=== PATIENT | male | born 1940 | race Caucasian/White ===

== ENCOUNTER 2017-06-04 06:20 | Emergency (ER) | payer MEDICARE, OTHER ==
[~2017-06-04] VITALS: Ht 185.4 cm; Wt 127.3 kg
[~2017-06-04 06:20] MED LIST: ACET-1015 PO; ALLO100T PO; ASPI-1264 PO; ATOR40TA PO; CHOL10008 PO; FURO40TA4 PO; GLYB-97 PO; LOSA50TA3 PO; METF1000 PO; POTA8TAB3 PO; SOTA80TA69 PO; SYN0.112T PO; TRAM50TA2 PO
[2017-06-04] MEDS ORDERED: HYDROcodone/acetaminophen 5mg/325mg tablet PO ONE ×2 (06:25→07:40)
[2017-06-04] MEDS ORDERED: naproxen 500mg tablet PO ONE ×2 (06:25→07:40)
[2017-06-04] MEDS ORDERED: HYDR-569 PO (07:42)
[2017-06-04] MEDS ORDERED: NAPR-56 PO (07:42)
== END 2017-06-04 08:19 | disposition home or self-care (01) ==
LOC: ER 06:20
DX: M47.896 Other spondylosis, lumbar region (principal); I25.2 Old myocardial infarction; M10.9 Gout, unspecified; J44.9 Chronic obstructive pulmonary disease, unspecified; E11.9 Type 2 diabetes mellitus without complications; I10 Essential (primary) hypertension; I25.10 Atherosclerotic heart disease of native coronary artery without angina pectoris; G89.29 Other chronic pain; Z98.890 Other specified postprocedural states; Z79.82 Long term (current) use of aspirin
CPT/HCPCS: 72100; 99284

== ENCOUNTER 2020-03-28 02:20 | Inpatient (IN) | payer MEDICARE, OTHER ==
[~2020-03-28] VITALS: Ht 177.8 cm; Wt 138.0 kg
[~2020-03-28 02:20] MED LIST changes: -ACET-1015 PO; -ALLO100T PO; +ALOG12.5 PO; +APIX2.5T PO; +DOCU100C40 PO; -FURO40TA4 PO; -GLYB-97 PO; -METF1000 PO; -POTA8TAB3 PO; -SOTA80TA69 PO; -TRAM50TA2 PO
--- NOTE | 2020-03-28 02:28 | NUR ---
olga mathew daughter [phone]
[2020-03-28 02:37] LABS: BASOPHILS # (AUTO) 0.1 X10'3 (0-0.2); BASOPHILS % (AUTO) 1.1 % (0-1); EOSINOPHILS # (AUTO) 0.2 X10'3 (0-0.9); EOSINOPHILS % (AUTO) 2.6 % (0-6); HEMATOCRIT 41.5 % (42.0-52.0); HEMOGLOBIN 13.9 g/dl (14.0-17.9); LYMPHOCYTES # (AUTO) 1.6 X10'3 (1.1-4.8); LYMPHOCYTES % (AUTO) 22.4 % (21-51); MEAN CORPUSCULAR HGB CONC 33.4 g/dL (33.0-36.5); MEAN CORPUSCULAR VOLUME 86.8 FL (78-98); MEAN PLATELET VOLUME 8.2 FL (7.4-10.4); MONOCYTES # (AUTO) 0.6 X10'3 (0-0.9); MONOCYTES % (AUTO) 8.1 % (2-12); NEUTROPHILS # (AUTO) 4.7 X10'3 (1.8-7.7); NEUTROPHILS % (AUTO) 65.8 % (42-75); PLATELET COUNT 179 X10'3 (140-440); RED BLOOD COUNT 4.79 X10'6 (4.70-6.10); RED CELL DISTRIBUTION WIDTH 17.4 % (11.5-14.5); WHITE BLOOD COUNT 7.2 X10'3 (4.5-11.0)
--- NOTE | 2020-03-28 02:41 | NUR ---
pt hr dropping to 30s occasionally. md aware. ekg complete. pads placed on pt.
[2020-03-28 02:50] LABS: ALANINE AMINOTRANSFERASE 17 U/L (12-78); ALBUMIN 3.2 G/DL (3.4-5.0); ALBUMIN/GLOBULIN RATIO 0.7 (1.1-1.5); ALKALINE PHOSPHATASE 132 IU/L (46-116); ANION GAP 4 (8-16); ASPARTATE AMINO TRANSFERASE 14 U/L (10-37); BILIRUBIN,TOTAL 0.4 MG/DL (0.1-1.0); BLOOD UREA NITROGEN 24 MG/DL (7-18); BUN/CREATININE RATIO 12.4 (5.4-32.0); CALCIUM 8.8 MG/DL (8.5-10.1); CHLORIDE 106 MMOL/L (99-107); CREATININE 1.94 MG/DL (0.60-1.10); GLUCOSE 164 MG/DL (70-104); POTASSIUM 3.9 MMOL/L (3.5-5.1); SODIUM 142 MMOL/L (135-145); TOTAL CARBON DIOXIDE 32.3 MMOL/L (24-32); TOTAL PROTEIN 7.5 G/DL (6.4-8.2); eGFR 33 ML/MIN
[2020-03-28 02:58] LABS: MAGNESIUM 1.9 MG/DL (1.5-2.4); TROPONIN I < 0.04 NG/ML (0.0-0.05)
[2020-03-28] MEDS ORDERED: ASPI-1265 PO (04:38)
[2020-03-28] MEDS ORDERED: ATOR80TA PO (04:38)
[2020-03-28] MEDS ORDERED: SYN0.088T PO (04:38)
[2020-03-28] MEDS ORDERED: DOCU-148 PO (04:38)
[2020-03-28] MEDS ORDERED: WARF-55 PO (04:38)
[2020-03-28] MEDS ORDERED: FURO-150 PO (04:38)
[2020-03-28] MEDS ORDERED: SOTA80TA73 PO (04:38)
[2020-03-28] MEDS ORDERED: CHOL100044 PO (04:38)
[2020-03-28] MEDS ORDERED: normal saline 1000ML IV soln IVB ONE (06:00)
[2020-03-28 06:07] LABS: CLARITY,URINE CLEAR (Clear); COLOR,URINE YELLOW (Yellow); GLUCOSE, URINE NEGATIVE (Neg); KETONES,URINE NEGATIVE (Neg); LEUKOCYTE ESTERASE ,URINE NEGATIVE (Neg); NITRITES, URINE NEGATIVE (Neg); OCCULT BLOOD,URINE TRACE-INTACT (Neg); PH,URINE 6.5 (4.8-8.0); PROTEIN,URINE >=300 mg/dl (Neg); UROBILINOGEN,URINE 0.2 E.U/dL (0.2-1.0)
[2020-03-28 06:09] LABS: UA COLLECTION TYPE NON-SPECIFIED
[2020-03-28 06:20] LABS: BACTERIA,URINE NONE SEEN /HPF (Neg); RBC,URINE 0-2 /HPF (0-2); SQUAMOUS EPITHELIAL CELL,UR NONE SEEN /LPF (FEW); WBC,URINE NONE SEEN /HPF (0-4)
[2020-03-28] MEDS ORDERED: magnesium 2GM in 50ml NS 50 ML IV PRN (07:25)
[2020-03-28] MEDS ORDERED: magnesium Cl slow-release 64mg tablet PO PRN (07:25)
[2020-03-28] MEDS ORDERED: acetaminophen 325mg tablet PO PRN (07:25)
[2020-03-28] MEDS ORDERED: potassium Cl 20 mEq SR tablet PO PRN ×2 (07:25)
[2020-03-28] MEDS ORDERED: potassium CL 10mEq/100ml bag 100 ML IV PRN ×2 (07:25)
[2020-03-28] MEDS ORDERED: ondansetron/PF 4mg/2ml inj IV PRN (07:25)
[2020-03-28] MEDS ORDERED: magnesium 4gm in 100ml NS 100 ML IV PRN (07:25)
[2020-03-28] MEDS: normal saline 1000ml 1,000 ML IV SCH ×2 (07:51→17:25)
[2020-03-28] MEDS: K and/or MAG REPLACEMENT MC SCH ×2 (08:00→20:00)
--- NOTE | 2020-03-28 08:51 | NUR ---
received report from venkatesh long
--- NOTE | 2020-03-28 10:31 | NUR ---
scanner not scanning meds into [email or web address], checked meds prior to admin
[2020-03-28] MEDS ORDERED: insulin Lispro (HumaLOG) vial - multi-dose SQ SCH (10:50)
[2020-03-28] MEDS ORDERED: dextrose 50%-water 50ml dispensing syringe IV PRN ×2 (10:50)
[2020-03-28] MEDS ORDERED: glucagon, human recombinant 1mg kit SUBCUT PRN (10:50)
[2020-03-28] MEDS ORDERED: MESSAGE TO PHARMACY PO ONE (10:50)
[2020-03-28] MEDS ORDERED: dextrose ORAL solution 15 GM/59 ML bottle PO PRN ×2 (10:50)
[2020-03-28 10:53] VITALS: BP 155/83
[2020-03-28 11:06] LABS: HEMOGLOBIN A1C 7.4 % (4.5-6.2)
[2020-03-28 12:05] VITALS: BP 167/97
--- NOTE | 2020-03-28 15:20 | NUR ---
ed pt on IS pt demo IS IS at pt bedside
[2020-03-28] MEDS: levoTHYROXINE 75mcg tablet PO SCH (17:38)
[2020-03-28] MEDS: furosemide 20MG tablet PO SCH (17:38)
--- NOTE | 2020-03-28 17:39 | NUR ---
scanner on computer not scanning meds into [employer], checked all meds prior to admin
[2020-03-28 18:00] VITALS: BP 133/82
--- NOTE | 2020-03-28 18:29 | NUR ---
gave report to venkatesh su
[2020-03-28] MEDS: docusate sod 100mg capsule PO SCH (20:22)
[2020-03-28] MEDS: atorvastatin 20mg tablet PO SCH (20:22)
[2020-03-28] MEDS: sotalol 80mg tablet PO SCH (20:23)
[2020-03-28] MEDS: insulin glargine (Lantus) pen - multi-dose SQ SCH (20:29)
[2020-03-28 22:00] VITALS: BP 152/82
[2020-03-29] MEDS: normal saline 1000ml 1,000 ML IV SCH ×3 (02:17→23:25)
[2020-03-29 06:00] VITALS: BP 148/84
--- NOTE | 2020-03-29 06:30 | NUR ---
Report given to Charlene HEWITT.
[2020-03-29 06:58] LABS: BASOPHILS # (AUTO) 0.1 X10'3 (0-0.2); BASOPHILS % (AUTO) 0.9 % (0-1); EOSINOPHILS # (AUTO) 0.2 X10'3 (0-0.9); EOSINOPHILS % (AUTO) 2.3 % (0-6); HEMATOCRIT 40.9 % (42.0-52.0); HEMOGLOBIN 13.5 g/dl (14.0-17.9); LYMPHOCYTES # (AUTO) 1.4 X10'3 (1.1-4.8); LYMPHOCYTES % (AUTO) 18.8 % (21-51); MEAN CORPUSCULAR HEMOGLOBIN 28.7 PG (27.0-31.0); MEAN CORPUSCULAR HGB CONC 33.1 g/dL (33.0-36.5); MEAN CORPUSCULAR VOLUME 86.8 FL (78-98); MEAN PLATELET VOLUME 8.4 FL (7.4-10.4); MONOCYTES # (AUTO) 0.6 X10'3 (0-0.9); MONOCYTES % (AUTO) 7.8 % (2-12); NEUTROPHILS # (AUTO) 5.3 X10'3 (1.8-7.7); NEUTROPHILS % (AUTO) 70.2 % (42-75); PLATELET COUNT 165 X10'3 (140-440); RED BLOOD COUNT 4.71 X10'6 (4.70-6.10); RED CELL DISTRIBUTION WIDTH 17.5 % (11.5-14.5); WHITE BLOOD COUNT 7.6 X10'3 (4.5-11.0)
[2020-03-29] MEDS: levoTHYROXINE 75mcg tablet PO SCH (07:12)
[2020-03-29 07:18] LABS: ALBUMIN 2.7 G/DL (3.4-5.0); ANION GAP 9 (8-16); BLOOD UREA NITROGEN 21 MG/DL (7-18); BUN/CREATININE RATIO 13.9 (5.4-32.0); CALCIUM 8.6 MG/DL (8.5-10.1); CHLORIDE 108 MMOL/L (99-107); CREATININE 1.51 MG/DL (0.60-1.10); GLUCOSE 140 MG/DL (70-104); MAGNESIUM 1.8 MG/DL (1.5-2.4); POTASSIUM 3.7 MMOL/L (3.5-5.1); SODIUM 144 MMOL/L (135-145); TOTAL CARBON DIOXIDE 27.3 MMOL/L (24-32); eGFR 45 ML/MIN
[2020-03-29] MEDS: K and/or MAG REPLACEMENT MC SCH ×2 (08:00→20:00)
[2020-03-29] MEDS: aspirin 81mg tab.chew PO SCH (08:25)
[2020-03-29] MEDS: vitamin D (cholecalciferol) 1,000 unit tablet PO SCH (08:26)
[2020-03-29] MEDS: sotalol 80mg tablet PO SCH ×2 (08:26→21:00)
[2020-03-29] MEDS: furosemide 20MG tablet PO SCH (08:26)
[2020-03-29] MEDS: docusate sod 100mg capsule PO SCH ×2 (08:27→20:59)
[2020-03-29] MEDS: warfarin 5mg tablet PO SCH (08:28)
[2020-03-29 10:10] VITALS: BP 144/72
--- NOTE | 2020-03-29 15:06 | NUR ---
DM Consult: A1C 7.4 appropriate given geriatric age. To f/u 04/02 for initial assessment. Addendum: 03/29/20 at [address] Amended: Links added.
--- NOTE | 2020-03-29 16:21 | NUR ---
spoke w/daughter, pt cannot take flu shot, daughter said will take him home because he is not able to take the flu shot, also pt sees dr. otoole for his heart, the [facility] manages his diabetes, and dr. enamorado is pt GP
--- NOTE | 2020-03-29 18:06 | NUR ---
RECEIVED REPORT FROM MEDINA HEWITT AND ASSUMED PATIENT CARE
[2020-03-29 18:26] VITALS: BP 134/82
[2020-03-29] MEDS: atorvastatin 20mg tablet PO SCH (20:59)
[2020-03-29] MEDS: nystatin 15 GM powder TP SCH (21:00)
[2020-03-29] MEDS: insulin glargine (Lantus) pen - multi-dose SQ SCH (21:00)
[2020-03-29 22:00] VITALS: BP 130/81
[2020-03-30 06:00] VITALS: BP 143/89
[2020-03-30 06:46] LABS: BASOPHILS # (AUTO) 0.1 X10'3 (0-0.2); BASOPHILS % (AUTO) 0.9 % (0-1); EOSINOPHILS # (AUTO) 0.2 X10'3 (0-0.9); EOSINOPHILS % (AUTO) 3.1 % (0-6); HEMATOCRIT 42.2 % (42.0-52.0); LYMPHOCYTES # (AUTO) 1.4 X10'3 (1.1-4.8); LYMPHOCYTES % (AUTO) 21.7 % (21-51); MEAN CORPUSCULAR HEMOGLOBIN 28.6 PG (27.0-31.0); MEAN CORPUSCULAR VOLUME 86.5 FL (78-98); MEAN PLATELET VOLUME 8.3 FL (7.4-10.4); MONOCYTES # (AUTO) 0.5 X10'3 (0-0.9); MONOCYTES % (AUTO) 7.8 % (2-12); NEUTROPHILS # (AUTO) 4.2 X10'3 (1.8-7.7); NEUTROPHILS % (AUTO) 66.5 % (42-75); PLATELET COUNT 164 X10'3 (140-440); RED BLOOD COUNT 4.88 X10'6 (4.70-6.10); RED CELL DISTRIBUTION WIDTH 17.2 % (11.5-14.5); WHITE BLOOD COUNT 6.3 X10'3 (4.5-11.0)
[2020-03-30 07:27] LABS: ALBUMIN 2.9 G/DL (3.4-5.0); ANION GAP 8 (8-16); BLOOD UREA NITROGEN 23 MG/DL (7-18); BUN/CREATININE RATIO 15.1 (5.4-32.0); CALCIUM 8.6 MG/DL (8.5-10.1); CHLORIDE 108 MMOL/L (99-107); CREATININE 1.52 MG/DL (0.60-1.10); GLUCOSE 136 MG/DL (70-104); MAGNESIUM 1.8 MG/DL (1.5-2.4); POTASSIUM 3.9 MMOL/L (3.5-5.1); SODIUM 145 MMOL/L (135-145); TOTAL CARBON DIOXIDE 29.3 MMOL/L (24-32); eGFR 44 ML/MIN
[2020-03-30] MEDS: levoTHYROXINE 75mcg tablet PO SCH (07:59)
[2020-03-30] MEDS: furosemide 20MG tablet PO SCH (08:00)
[2020-03-30] MEDS: docusate sod 100mg capsule PO SCH ×2 (08:00→19:37)
[2020-03-30] MEDS: warfarin 5mg tablet PO SCH (08:00)
[2020-03-30] MEDS: aspirin 81mg tab.chew PO SCH (08:00)
[2020-03-30] MEDS: vitamin D (cholecalciferol) 1,000 unit tablet PO SCH (08:01)
[2020-03-30] MEDS: sotalol 80mg tablet PO SCH ×2 (08:01→19:37)
[2020-03-30] MEDS: nystatin 15 GM powder TP SCH ×2 (08:03→19:37)
[2020-03-30] MEDS: K and/or MAG REPLACEMENT MC SCH ×2 (08:05→19:39)
[2020-03-30 10:00] VITALS: BP 137/69
--- NOTE | 2020-03-30 10:11 | NUR ---
PAGER ID: [phone] MESSAGE: [id number] [facility] TSH [phone] [place] [id number]
[2020-03-30] MEDS: normal saline 1000ml 1,000 ML IV SCH ×2 (13:31→19:25)
[2020-03-30] MEDS ORDERED: ondansetron 4mg rapidly disintigrating tab PO PRN (15:05)
[2020-03-30 18:00] VITALS: BP 138/77
--- NOTE | 2020-03-30 18:26 | NUR ---
Patient in room ORTHO 4009. I have received report from Odilia HEWITT and had the opportunity to ask questions and assume patient care.
[2020-03-30] MEDS: insulin glargine (Lantus) pen - multi-dose SQ SCH (21:00)
[2020-03-30] MEDS: atorvastatin 20mg tablet PO SCH (21:21)
[2020-03-30 22:00] VITALS: BP 149/76
[2020-03-31] MEDS: normal saline 1000ml 1,000 ML IV SCH (00:52)
[2020-03-31 06:00] VITALS: BP 149/79
--- NOTE | 2020-03-31 06:26 | NUR ---
Problems reprioritized. Patient report given, questions answered & plan of care reviewed with Odilia HEWITT.
[2020-03-31] MEDS: K and/or MAG REPLACEMENT MC SCH (08:00)
[2020-03-31] MEDS: nystatin 15 GM powder TP SCH (08:00)
[2020-03-31] MEDS: sotalol 80mg tablet PO SCH (08:00)
[2020-03-31 08:39] LABS: BASOPHILS # (AUTO) 0.1 X10'3 (0-0.2); BASOPHILS % (AUTO) 0.9 % (0-1); EOSINOPHILS # (AUTO) 0.1 X10'3 (0-0.9); EOSINOPHILS % (AUTO) 2.2 % (0-6); HEMATOCRIT 41.6 % (42.0-52.0); HEMOGLOBIN 13.9 g/dl (14.0-17.9); LYMPHOCYTES # (AUTO) 1.6 X10'3 (1.1-4.8); LYMPHOCYTES % (AUTO) 24.9 % (21-51); MEAN CORPUSCULAR HEMOGLOBIN 29.3 PG (27.0-31.0); MEAN CORPUSCULAR HGB CONC 33.3 g/dL (33.0-36.5); MEAN CORPUSCULAR VOLUME 87.9 FL (78-98); MEAN PLATELET VOLUME 8.4 FL (7.4-10.4); MONOCYTES # (AUTO) 0.5 X10'3 (0-0.9); MONOCYTES % (AUTO) 7.7 % (2-12); NEUTROPHILS # (AUTO) 4.1 X10'3 (1.8-7.7); NEUTROPHILS % (AUTO) 64.3 % (42-75); PLATELET COUNT 165 X10'3 (140-440); RED BLOOD COUNT 4.73 X10'6 (4.70-6.10); RED CELL DISTRIBUTION WIDTH 17.5 % (11.5-14.5); WHITE BLOOD COUNT 6.4 X10'3 (4.5-11.0)
[2020-03-31 08:56] LABS: ALBUMIN 2.9 G/DL (3.4-5.0); ANION GAP 7 (8-16); BLOOD UREA NITROGEN 27 MG/DL (7-18); BUN/CREATININE RATIO 17.4 (5.4-32.0); CALCIUM 8.8 MG/DL (8.5-10.1); CHLORIDE 107 MMOL/L (99-107); CREATININE 1.55 MG/DL (0.60-1.10); GLUCOSE 141 MG/DL (70-104); MAGNESIUM 1.8 MG/DL (1.5-2.4); SODIUM 142 MMOL/L (135-145); TOTAL CARBON DIOXIDE 28.4 MMOL/L (24-32); eGFR 43 ML/MIN
[2020-03-31] MEDS: vitamin D (cholecalciferol) 1,000 unit tablet PO SCH (08:58)
[2020-03-31] MEDS: aspirin 81mg tab.chew PO SCH (08:58)
[2020-03-31] MEDS: docusate sod 100mg capsule PO SCH (08:58)
[2020-03-31] MEDS: warfarin 5mg tablet PO SCH (08:59)
[2020-03-31] MEDS: levoTHYROXINE 75mcg tablet PO SCH ×2 (09:16→09:17)
[2020-03-31 10:00] VITALS: BP 143/78
--- NOTE | 2020-03-31 17:51 | NUR ---
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
== END 2020-03-31 17:39 | disposition home health service (06) | DRG 683 ==
LOC: ER 02:20 → ED HOLD 07:24 → ORTHO 4S 09:25
PROVIDERS: ADMIT Internal Medicine; ATTEND Internal Medicine
DX: N17.0 Acute kidney failure with tubular necrosis (principal); Z68.41 Body mass index [BMI] 40.0-44.9, adult; R29.6 Repeated falls; S51.812A Laceration without foreign body of left forearm, initial encounter; E03.9 Hypothyroidism, unspecified; E11.9 Type 2 diabetes mellitus without complications; E66.01 Morbid (severe) obesity due to excess calories; E78.00 Pure hypercholesterolemia, unspecified; E78.5 Hyperlipidemia, unspecified; E86.9 Volume depletion, unspecified; J44.9 Chronic obstructive pulmonary disease, unspecified; Z96.653 Presence of artificial knee joint, bilateral; W01.0XXA Fall on same level from slipping, tripping and stumbling without subsequent striking against object, initial encounter; G89.29 Other chronic pain; M10.9 Gout, unspecified; M54.9 Dorsalgia, unspecified; R00.8 Other abnormalities of heart beat; I10 Essential (primary) hypertension; I25.10 Atherosclerotic heart disease of native coronary artery without angina pectoris; I25.2 Old myocardial infarction; Z79.01 Long term (current) use of anticoagulants; Z87.891 Personal history of nicotine dependence; Z91.81 History of falling; Y93.89 Activity, other specified; Y92.89 Other specified places as the place of occurrence of the external cause; Y99.8 Other external cause status; Z88.7 Allergy status to serum and vaccine; Z79.899 Other long term (current) drug therapy; Z79.82 Long term (current) use of aspirin
CPT/HCPCS: 36415; 71045; 71250; 80048; 80053; 81001; 82948; 83036; 83735; 83880; 84145; 84443; 84484; 85025; 85610; 87081; 93005; 93306; 93308; 97110; 97116; 97161; 97530; 99285; G0378; J1815; J7030